=== PATIENT | female | born 1990 | race Caucasian/White ===

== ENCOUNTER → 2019-06-03 09:52 | Outpatient (BNVA) | payer MEDICAID, SELFPAY | PROVIDERS: PCP Nurse Practitioner; Visit Provider Nurse Practitioner Family | DX: R30.0 Dysuria (principal); R39.9 Unspecified symptoms and signs involving the genitourinary system | CPT/HCPCS: 81003; 87491; 87591; 87661 ==

== ENCOUNTER 2020-10-11 21:09 | Emergency (ER) | payer MEDICAID, SELFPAY ==
[2020-10-11 21:27] VITALS: BP 122/84; PULSE 114; RESP 18; TEMP 36.8; O2SAT 96; BMI 31.5
--- NOTE | 2020-10-11 21:47 | XRR_ITS ---
PROCEDURE INFORMATION: Exam: XR Left Knee Exam date and time: 10/11/2020 9:47 PM Age: 29 years old Clinical indication: Injury or trauma; Fall; Laceration; Patella or knee; Left; Foreign body involvement not specified; Additional info: Fall injury with laceration to back of knee TECHNIQUE: Imaging protocol: XR Left knee. Views: 3 views. COMPARISON: No relevant prior studies available. FINDINGS: Bones/joints: No acute bony injury or malalignment. Soft tissues: Posterior subcutaneous emphysema. XR/XR knee LT 3V* [id number] IMPRESSION: No acute bony injury or malalignment.
--- NOTE | 2020-10-11 21:48 | W.ED.TRAUMA ---
HPI - Trauma General: Chief Complaint: Trauma Stated Complaint: LLE INJURY/THROWN FROM HORSE Time Seen by Provider: 10/11/20 21:38 History of Present Illness: HPI narrative: Patient is a 29-year-old female comes to the ED with left knee injury. Patient says she was riding on horse just prior to arrival. She then got slightly thrown off balance while on the horse and she was then on the side of the horse and then fell off. She denies any head trauma or loss of consciousness. She thinks when she fell and hit the ground one of the horses hose stepped on her posterior aspect of the left knee causing an abrasion bruising and laceration. Patient was able to ambulate right after injury. One of her family members saw the back of her leg and the laceration and they brought her here to the ED to be evaluated. Associated symptoms: Denies abdominal pain, back pain, chest pain, chills, fever(s), headache(s), nausea or vomiting Review of Systems Const: Denies: fever(s), chills or fatigue Eyes: Denies: change in vision or eye discomfort ENMT: Denies: throat pain, odynophagia, nasal discharge or nasal congestion Card: Denies: chest pain, palpitations, edema, swelling of feet/ankles, dyspnea on exertion or orthopnea Resp: Denies: dyspnea, productive cough or non-productive cough GI: Denies: abdominal pain, nausea, vomiting, diarrhea, constipation or hematochezia : Denies: flank pain, dysuria or hematuria Musc: Reports: extremity pain (left knee pain); Denies: neck pain, back pain or extremity swelling Skin/Breast: Reports: new lesions (Laceration, abrasion and ecchymosis to posterior left knee); Denies: rash Neuro: Denies: headache(s), numbness in extremities or weakness in extremities PFSH ED PFSH: Family History Other No pertinent family history Social History Smoking and tobacco status: current every day smoker cigarettes Packs smoked per day: 0.5 [ Other cigarette details: smoked 10 yrs ] Second hand smoke exposure: Yes Alcohol intake: never Lives independently: Yes Household members: children Current occupational status: unemployed History of recent travel: No Current gender identity: Female Female Reproductive History: Date of last menstrual period: 09/22/20 Physical Exam Const: COMMON NORMALS: no acute distress, patient oriented x3 and alert GENERAL APPEARANCE: cooperative and comfortable HENMT: COMMON NORMALS: normocephalic HEAD & SCALP: normocephalic MOUTH: Normal oral and palatal mucosa present THROAT: posterior oropharynx normal and uvula midline Neck/C-Spine: COMMON NORMALS: supple GENERAL: Yes normal visual inspection Resp: COMMON NORMALS: normal respiratory effort, No retractions, No use of accessory muscles and clear to auscultation bilaterally AUSCULTATION: clear to auscultation bilaterally Cardio: COMMON NORMALS: regular rate, regular rhythm, S1 normal heart sound present, S2 normal heart sound present, No gallops present (Cardio), No clicks present (Cardio), No murmurs present (Cardio) and Peripheral pulses 2+ throughout RATE: regular rate RHYTHM: regular rhythm HEART SOUNDS: S1 normal heart sound present and S2 normal heart sound present PERIPHERAL PULSES: Peripheral pulses 2+ throughout GI: COMMON NORMALS: Normal to inspection, nondistended, normoactive bowel sounds present, Soft to palpation, non-tender and no masses PALPATION: Yes Soft to palpation : COMMON NORMALS: Yes no CVA tenderness BLADDER/KIDNEY EXAM: Yes no CVA tenderness Back/Pelvis: COMMON NORMALS: no CVA tenderness Extremity: NARRATIVE EXTREMITY EXAM: Left knee?posterior aspect has superficial abrasions with ecchymosis. There is approximately 1 cm laceration as well that is superficial with no active bleeding. She also has 2 superficial abrasions to anterior aspect of left lower leg. GENERAL: Yes normal exam except as noted Neuro: COMMON NORMALS: patient oriented x3 and moves all extremities SENSORIUM/ORIENTATION: Yes alert Skin: NARRATIVE SKIN EXAM: Left knee?posterior aspect has superficial abrasions with ecchymosis. There is approximately 1 cm laceration as well that is superficial with no active bleeding. She also has 2 superficial abrasions to anterior aspect of left lower leg. GENERAL SKIN EXAM: dry skin Procedures Laceration Laceration 1: Site: lower extremity (back of left knee) Side (If applicable): left Size (cm): 1.5 Description: irregular and clean Depth: simple, single layer Local Anesthetic: lidocaine 1% and with epi Amount of anesthesia used (mL): 10 Pre-repair: irrigated extensively (Irrigated extensively with normal saline and iodine wash. Skin cleaned with CHG swab.) Skin layer closed with: nylon Size (cm): 4-0 Number of sutures: 6 Technique: simple, interrupted Course Vital Signs: Vital signs: Vital Signs Temperature 98.3 F 10/11/20 21:27 Pulse Rate 91 10/12/20 00:57 Respiratory Rate 16 10/12/20 00:57 Blood Pressure 117/80 10/12/20 00:57 Pulse Oximetry 96 10/12/20 00:57 MDM - Trauma MDM Narrative: Medical decision making narrative: Patient is a 29-year-old female comes to the ED with injury to left knee. Patient fell off horse and believes she might of gotten her left knee stepped on by horse. Denies any head trauma, loss of consciousness or any other pain or injury. She now has superficial abrasion to posterior aspect of left knee, ecchymosis and a 1.5 cm irregular shaped laceration. X-ray left knee showed no acute fractures or findings. I irrigated the laceration site extensively with normal saline and iodine wash. I then cleaned the skin with CHG swab. Lidocaine 1% with epi was used as local. I then placed 6 sutures to close laceration. Nurse then applied bacitracin and bandage over wound. Patient was discharged home with crutches and a prescription for cephalexin. Patient diagnosed with laceration of left leg, contusion of left leg and abrasion of left leg. She was told to have a medical provider evaluate her laceration in 7 to 10 days to remove sutures. Return to ED precautions given. Patient understood and agree with plan. Imaging Data^: Xray Ortho: Attestation: I personally reviewed and interpreted this imaging study as follows: My impression: Left knee x-ray?no acute fracture seen. Discharge Plan Discharge Patient Disposition: Home Clinical Impression: Laceration of left leg Qualifiers: Encounter type: initial encounter Qualified Code(s): S81.812A - Laceration without foreign body, left lower leg, initial encounter Contusion of left leg Qualifiers: Encounter type: initial encounter Qualified Code(s): S80.12XA - Contusion of left lower leg, initial encounter Abrasion of left leg Qualifiers: Encounter type: initial encounter Qualified Code(s): S80.812A - Abrasion, left lower leg, initial encounter Condition: Stable Prescriptions: New cephalexin 500 mg capsule 500 mg PO Q6H 7 Days Qty: 28 RF: 0 Discharge Orders: Discharge ED (Routine); Ordered 10/11/20 Ordered By: Nicolas Mason Referrals: Jackie Badillo FNP-C [Primary Care Provider] - Discharge Diet: Regular Discharge Activity: Limit activity as instructed and Use walker/crutches as instructed Patient Instructions: Suture Care (ED), Laceration (ED), Contusion in Adults (ED), Abrasion (ED) Activity Restrictions/Additional Instructions: Take full course of antibiotics as prescribed. Use crutches and limit movement of left leg for the next 48 hours. Keep laceration site clean and dry for the next 48 hours. Then after that you can clean and re-bandage daily. Watch for signs of infection such as redness, warmth, increased tenderness and puslike drainage. If you see the signs of infection return to the ED, urgent care or PCP for reevaluation. call your PCP to schedule a follow-up appointment for reevaluation and suture removal in about 7- 10 days. Apply cold pack on left knee to help with swelling. Continue taking all home meds. Follow discharge plans as discussed. You can return to the ED if symptoms worsen. Coding Level of Care Code ED Deputy County Attorney for Rudi Dewitt Exam Comprehensive
[2020-10-12] MEDS: cephALEXin 500 mg Capsule PO (00:29)
[2020-10-12] MEDS: bacitracin ointment Pkt 1 EACH TOPICAL (00:29)
--- NOTE | 2020-10-12 00:45 | PC.NURSE ---
Cleaned and applied bacitracin to wounds to LLE. Applied bandages and curlex. Pt tolerated well.
[2020-10-12 00:57] VITALS: BP 117/80; PULSE 91; RESP 16; O2SAT 96
== END 2020-10-12 01:01 | disposition home or self-care (01) ==
PROVIDERS: Emergency Provider Physician Assistant; PCP Nurse Practitioner
DX: S81.812A Laceration without foreign body, left lower leg, initial encounter (principal); S80.12XA Contusion of left lower leg, initial encounter; S80.812A Abrasion, left lower leg, initial encounter; F17.210 Nicotine dependence, cigarettes, uncomplicated; V80.010A Animal-rider injured by fall from or being thrown from horse in noncollision accident, initial encounter
CPT/HCPCS: 12001; 73562; 99283; E0114

== ENCOUNTER → 2020-10-21 00:01 | Outpatient (BNVA) | payer MEDICAID, SELFPAY | PROVIDERS: PCP Nurse Practitioner; Visit Provider Nurse Practitioner Family | DX: R30.0 Dysuria (principal); S80.812A Abrasion, left lower leg, initial encounter; L03.116 Cellulitis of left lower limb; X58.XXXA Exposure to other specified factors, initial encounter | CPT/HCPCS: 87070; 87075; 87077; 87184; 87205 ==

== ENCOUNTER → 2021-03-17 11:15 | Outpatient (BNVA) | payer MEDICAID, SELFPAY | PROVIDERS: PCP Nurse Practitioner; Visit Provider Nurse Practitioner Family | DX: J32.9 Chronic sinusitis, unspecified (principal); M25.562 Pain in left knee | CPT/HCPCS: 73562; 87071; 87635; 87880 ==

== ENCOUNTER 2021-05-26 13:20 | Outpatient (CLI) | payer MEDICAID, SELFPAY ==
--- NOTE | 2021-05-26 13:27 | MR_ITS ---
WS: [id number] MRI LEFT KNEE NONCONTRAST TECHNIQUE: Axial PD, coronal PD fat sat, coronal PD, sagittal PD, and sagittal PD fat-sat images obta ined. CLINICAL INFORMATION: M25.562 - Pain in left knee COMPARISON: None. FINDINGS: Distal quadriceps and patella tendons are intact. Normal ACL and PCL. Patella is normal in appearance . Normal bone marrow signal. Normal medial and lateral meniscus. No acute appearing meniscal tears. Medial and lateral joint diana rtments are well preserved. No significant chondromalacia. Normal medial and lateral patellar retinac ulum. Normal popliteal fossa. Normal medial and lateral collateral ligaments. Normal tibial plateau. No other significant findings. MR/MR knee LT wo con* [id number] IMPRESSION: 1. Normal ACL and PCL. 2. Normal medial and lateral meniscus. No acute appearing meniscal tears. 3. Normal medial and lateral collateral ligaments. 4. Normal bone marrow signal. 5. No acute knee findings. Outbridge grading: grade I: focal areas of hyperintensity with normal contour
== END 2021-05-26 13:21 | disposition home or self-care (01) ==
LOC: RAD 13:21
PROVIDERS: PCP Nurse Practitioner; Visit Provider Nurse Practitioner Family
DX: M25.562 Pain in left knee (principal)
CPT/HCPCS: 73721

== ENCOUNTER 2023-09-11 20:02 | Inpatient (IN) | payer MEDICAID, SELFPAY ==
[2023-09-11 20:03] VITALS: BP 132/81; PULSE 77; RESP 18; TEMP 36.5; O2SAT 98; BMI 22.6
--- NOTE | 2023-09-11 20:17 | W.ED.PSYCHS ---
HPI - Psych General: Chief Complaint: Psychiatric Symptoms Stated Complaint: anxiety, confusion Time Seen by Provider: 09/11/23 20:03 Source: patient and EMS Mode of arrival: EMS Limitations: no limitations History of Present Illness: 32-year-old female states she been having increased depression patient denies any SI or HI but states she is just been feeling severely depressed and down and wants to be admitted to the [facility] for evaluation. She is not on any psych meds at this time. Denies any worse improving factors Associated symptoms: Reports depression Review of Systems Const: Denies: fever(s), chills, body aches or change in appetite ENMT: Denies: throat pain or dental pain Card: Denies: chest pain Resp: Denies: dyspnea GI: Denies: abdominal pain, nausea, vomiting or diarrhea Musc: Denies: neck pain or back pain Skin/Breast: Denies: rash Neuro: Denies: headache(s) Psych: Reports: depression PFS ED PFSH: Family History Other No pertinent family history Social History Smoking and tobacco/nicotine status: current every day tobacco/nicotine user cigarettes Packs smoked per day: 0.5 [ Other cigarette details: smoked 10 yrs] Second hand smoke exposure: Yes Alcohol intake: never Substance/Drug Use: never Lives independently: Yes Household members: children service: No Current occupational status: unemployed Current gender identity: Female Physical Exam Const: COMMON NORMALS: no acute distress, patient oriented x3 and healthy appearing HENMT: COMMON NORMALS: normocephalic and atraumatic HEAD & SCALP: normocephalic and atraumatic Eye: COMMON NORMALS: Equal, round and reactive pupils present PUPIL: Yes Equal, round and reactive pupils present Neck/C-Spine: COMMON NORMALS: full ROM and supple Chest: COMMONS NORMALS: normal inspection of the chest Resp: COMMON NORMALS: normal respiratory effort Cardio: COMMON NORMALS: regular rate, regular rhythm and No murmurs present (Cardio) RATE: regular rate RHYTHM: regular rhythm Extremity: COMMON NORMALS: normal to inspection and full ROM Neuro: COMMON NORMALS: patient oriented x3, moves all extremities and no focal motor deficits Psych: COMMON NORMALS: mental status grossly normal, Normal thought process present and cooperative ATTITUDE: Yes Withdrawn affect present MOOD & AFFECT: Yes depressed mood THOUGHT PROCESS: Normal thought process present THOUGHT CONTENT: No Suicidality present Skin: COMMON NORMALS: no rashes or lesions noted and no wounds GENERAL SKIN EXAM: no rashes or lesions noted Course Vital Signs: Vital signs: Vital Signs Temperature 97.7 F 09/11/23 20:03 Pulse Rate 77 09/11/23 20:03 Respiratory Rate 18 09/11/23 20:03 Blood Pressure 132/81 09/11/23 20:03 Pulse Oximetry 98 09/11/23 20:03 Oxygen Delivery Me thod Room Air 09/11/23 20:03 [facility] - Psych Medical Decision Making Patient presents here with depression she is not suicidal or homicidal but voluntarily wants to be admitted to the [facility] patient is medically cleared will admit at this time I did speak to Dr. Moncada who agrees to admission Medical Records I reviewed the patient's medical records. Lab Data I reviewed the patient's lab results. 09/11/23 20:22 09/11/23 20:[address] 09/11/23 20:18 IMPRESSION: No acute intracranial abnormality. Laboratory Results WBC 10.50 10^3/uL (3.29-11.43) 09/11/23 20:22 RBC 5.11 10^6/uL (3.85-5.65) 09/11/23 20:22 Hgb 14.20 g/dL (11.27-16.99) 09/11/23 20:22 Hct 44.2 % (36-47) 09/11/23 20:22 MCV 86.5 fl (85-98) 09/11/23 20:22 MCH 27.8 pg (27-33) 09/11/23 20:22 MCHC 32.1 g/dL (30-55) 09/11/23 20:22 RDW 14.0 % (12.1-15.1) 09/11/23 20:22 Plt Count 457 10^3/cmm (157-399) H 09/11/23 20:22 MPV 9.5 fL (7.4-10.4) 09/11/23 20:22 Neut % (Auto) 73.0 % 09/11/23 20:22 Lymph % (Auto) 19.9 % 09/11/23 20:22 Upson % (Auto) 5.3 % 09/11/23 20:22 Eos % (Auto) 1.0 % 09/11/23 20:22 Baso % (Auto) 0.5 % 09/11/23 20:22 Neut # (Auto) 7.66 10^3/uL (1.8-7.7) 09/11/23 20:22 Lymph # (Auto) 2.1 10^3/uL (0.8-4.8) 09/11/23 20:22 Upson # (Auto) 0.6 10^3/uL (0.2-0.9) 09/11/23 20:22 Eos # (Auto) 0.1 10^3/uL (0.0-0.8) 09/11/23 20:22 Baso # (Auto) 0.1 10^3/uL (0.0-0.1) 09/11/23 20:22 Nucleated RBC % (auto) 0 % 09/11/23 20: Nucleated RBCs # 0.0 /100WBC 09/11/23 20:22 Sodium 138 mmol/L (136-145) 09/11/23 20:22 Potassium 3.4 mmol/L (3.5-5.1) L 09/11/23 20:22 Chloride 103 mmol/L (98-107) 09/11/23 20:22 Carbon Dioxide 24 mmol/L (22-29) 09/11/23 20:22 Anion Gap 14.4 (5-19) 09/11/23 20:22 BUN 5 mg/dL (6-20) L 09/11/23 20:22 Creatinine 0.5 mg/dL (0.5-0.9) 09/11/23 20:22 GFR Calculation 143.9 mL/min (90-130) H 09/11/23 20:22 Glucose 97 mg/dL (65-115) 09/11/23 20:22 Calculated Osmolality 283 mOsm/kg (285-295) L 09/11/23 20:22 Calcium 8.8 mg/dL (8.5-10.5) 09/11/23 20:22 Total Bilirubin 0.5 mg/dL (0.15-1.2) 09/11/23 20:22 AST 9 U/L (0-32) 09/11/23 20:22 ALT 8 U/L (0-33) 09/11/23 20:22 Alkaline Phosphatase 72 U/L (35-105) 09/11/23 20:22 Total Protein 7.8 g/dL (6.6-8.7) 09/11/23 20:22 Albumin 4.3 g/dL (3.5-5.2) 09/11/23 20:22 Globulin 3.5 g/dL (1.3-4.6) 09/11/23 20:22 TSH 2.05 uIU/mL (0.27-4.20) 09/11/23 20:22 HCG, Qual Negative (Negative) 09/11/23 20:22 Salicylates < 0.3 mg/dL (3-10) L 09/11/23 20:22 Urine Opiates Screen Negative ng/mL (Negative) 09/11/23 20:22 Acetaminophen < 5.0 ug/mL (10-30) L 09/11/23 20:22 Ur Barbiturates Screen Negative ng/mL (Negative) 09/11/23 20:22 Ur Phencyclidine Scrn Negative ng/mL (Negative) 09/11/23 20:22 Ur Amphetamines Screen Positive ng/mL (Negative) H 09/11/23 20:22 U Benzodiazepines Scrn Negative ng/mL (Negative) 09/11/23 20:22 Urine Cocaine Screen Negative ng/mL (Negative) 09/11/23 20:22 U Marijuana (THC) Screen Positive ng/mL (Negative) H 09/11/23 20:22 Ethyl Alcohol < 10 mg/dL (0-10) 09/11/23 20:22 No radiology studies performed this visit Discharge Plan Discharge Condition: Stable Referrals: Yamileth Kraus NP [Nurse Practitioner] - Coding Level of Care Code ED Tow Motor Operator for Rudi Dewitt
--- NOTE | 2023-09-11 20:18 | CTR_ITS ---
PROCEDURE INFORMATION: Exam: CT Head Without Contrast Exam date and time: 09/11/2023 8:31 PM Age: 32 years old Clinical indication: Altered mental status/memory loss; Additional info: Confusion TECHNIQUE: Imaging protocol: Computed tomography of the head without contrast. Radiation optimization: All CT scans at this facility use at least one of these dose optimization techniques: automated exposure control; mA and/or kV adjustment per patient size (includes targeted exams where dose is matched to clinical indication); or iterative reconstruction. COMPARISON: No relevant prior studies available. RADIATION DOSE METRICS: Total DLP (mGy-cm): 1085 FINDINGS: Brain: Normal. No hemorrhage. Unremarkable white matter. No mass effect. Cerebral ventricles: No ventriculomegaly. Paranasal sinuses: Visualized sinuses are unremarkable. No fluid levels. Mastoid air cells: Visualized mastoid air cells are well aerated. Bones: Unremarkable. No acute fracture. Soft tissues: Unremarkable. CT/CT head wo con* [id number] IMPRESSION: No acute intracranial abnormality.
[2023-09-11 20:29] LABS: Basophils # 0.1 10^3/uL (0.0-0.1); Basophils % 0.5 %; Eosinophils # 0.1 10^3/uL (0.0-0.8); Hematocrit 44.2 % (36-47); Lymphocytes # 2.1 10^3/uL (0.8-4.8); Lymphocytes % 19.9 %; Mean Corpuscular HGB Conc 32.1 g/dL (30-55); Mean Corpuscular Hemoglobin 27.8 pg (27-33); Mean Corpuscular Volume 86.5 fl (85-98); Mean Platelet Volume 9.5 fL (7.4-10.4); Monocytes # 0.6 10^3/uL (0.2-0.9); Monocytes % 5.3 %; Neutrophils # 7.66 10^3/uL (1.8-7.7); Nucleated Red Blood Cells % 0 %; Platelet Count 457 10^3/cmm (157-399); Red Blood Count 5.11 10^6/uL (3.85-5.65)
[2023-09-11 20:33] LABS: HCG Qualitative Urine. Negative (Negative)
[2023-09-11 20:41] LABS: Amphetamines Screen Urine Positive (Negative); Barbiturates Screen Urine Negative (Negative); Benzodiazepines Screen Urine Negative (Negative); Cocaine Screen Urine Negative (Negative); Opiate Screen Urine Negative (Negative); PCP Screen Urine Negative (Negative); THC Screen Urine Positive (Negative)
[2023-09-11 21:06] LABS: Acetaminophen < 5.0 ug/mL (10-30); Alanine Aminotransferase 8 U/L (0-33); Albumin Level 4.3 g/dL (3.5-5.2); Alcohol Level < 10 mg/dL (0-10); Alkaline Phosphatase 72 U/L (35-105); Anion Gap 14.4 (5-19); Aspartate Amino Transferase 9 U/L (0-32); Blood Urea Nitrogen 5 mg/dL (6-20); Calcium 8.8 mg/dL (8.5-10.5); Carbon Dioxide 24 mmol/L (22-29); Chloride 103 mmol/L (98-107); Creatinine Clr Calc Pharmacy 129.8449; Globulin 3.5 g/dL (1.3-4.6); Glomerular Filtration Rate 143.9 mL/min (90-130); Glucose 97 mg/dL (65-115); Osmolality Calculated 283 mOsm/kg (285-295); Potassium 3.4 mmol/L (3.5-5.1); Salicylate < 0.3 mg/dL (3-10); Sodium 138 mmol/L (136-145); Total Bilirubin 0.5 mg/dL (0.15-1.2); Total Protein 7.8 g/dL (6.6-8.7)
[2023-09-11 21:09] LABS: Thyroid Stimulating Hormone 2.05 uIU/mL (0.27-4.20)
[2023-09-11 22:09] VITALS: BP 120/79; PULSE 78; RESP 16; TEMP 36.6; O2SAT 98
[2023-09-12 06:00] VITALS: BP 111/73; PULSE 91; RESP 18; TEMP 36.7; O2SAT 98
--- NOTE | 2023-09-12 08:35 | PC.NURSE ---
Patient resting in bed this morning with eyes widened. When asked assessment questions this morning she either didn't respond or responded inappropriately. When asking patient if she felt anxious she paused for several seconds and then said, anxious, then laughed. However, she was alert and oriented x 4.
[2023-09-12 14:00] VITALS: BP 110/77; PULSE 73; RESP 20; TEMP 37; O2SAT 100
--- NOTE | 2023-09-12 16:55 | P.NPUHP_ITS ---
Providers/Chief Complaint 2 Admitting Physician: Gerald Moncada MD Primary Care Provider: Ariadna Stewart APN Chief Complaint: anxiety, confusion HPI NPU History of Present Illness Yamileth Cordova is a 32 year old female with no previous reported history of inpatient psychiatric hospitalization who presented to the emergency department via EMS. She was an extremely poor historian and unable to provide any clear information as to why she was admitted to the psychiatric unit for further evaluation and treatment. Patient had nodded her head acknowledging that she had been depressed and acknowledged having worsening mood. The patient had a positive drug screen for amphetamines but repeatedly stated that she was not using any illicit drugs. She appeared in great distress and was unable to provide any clear history through open-ended questions. The patient had acknowledged having 2 children in the home and had stated that her of 1 month was caring for them currently. She had minimized having problems with hallucinations. She had minimized any symptoms suggestive of sarah beth. She had reported having some difficulties with falling asleep. Inpatient psychiatric hospitalization: None reported outpatient psychiatric history: None reported drug and alcohol history: Denied any illicit drug use despite a positive test for marijuana and amphetamines on initial screening here. Medical history: Per previous records history of cellulitis and dysuria along with left knee pain Surgical history: None reported Allergies: No known drug allergies Legal history: Unknown Current medications: None Social history: The patient lives in [facility] with her of 1 month. She has 2 children ages 11 and 9 from a previous relationship. This is her first marriage. She had reported that she had received special education services as a child. She reports that her mother had raised her in [place] and her father was not involved in her life after the age of 6. She had dropped out of school in the 11th grade and states that she is currently on disability. She had not endorsed any history of sexual physical or emotional abuse. Meds NPU Home Medications Medication Instructions Recorded Confirmed Last Taken Type No Known Home Medications 09/11/23 09/11/23 Unknown History Allergies Allergy/AdvReac Type Severity Reaction Status Date / Time No Known Allergies Allergy Verified 09/19/22 16:19 PFSH NPU 2 PFSH: Family History Other No pertinent family history Social History Smoking and tobacco/nicotine status: current every day tobacco/nicotine user cigarettes Packs smoked per day: 0.5 [ Other cigarette details: smoked 10 yrs] Second hand smoke exposure: Yes Alcohol intake: never Substance/Drug Use: never Lives independently: Yes Household members: children service: No Current occupational status: unemployed Current gender identity: Female Mental Status Exam 2 MSE Comments: The patient was lying in bed and minimally interactive with fleeting eye contact. She had excessive blinking noted and very limited speech appreciated. There was decreased productivity and speech and decreased in volume. There was significant paucity of speech and increased speech latency. There was a significant delay in her responses and she was extremely guarded. She described her mood as okay. Her affect was odd and subdued. Her thought process was superficial but linear. She denied any thoughts of hurting herself or others. There was no evidence of delusional thinking. She did appear at times to be responding to internal stimuli but denied any complaints of this. Her intelligence appeared commensurate with mild cognitive impairment. Her attention span appeared poor she was distracted. Her insight is impaired. Her judgment is poor. Her impulse control appeared limited at best. There was no evidence of any abnormal involuntary motor movements or tics appreciated. Vitals/I&O/Wt Last Vital Signs Temp 98.6 F 09/12/23 14:00 Pulse 73 09/12/23 14:00 Resp 20 H 09/12/23 14:00 BP 110/77 09/12/23 14:00 Pulse Ox 100 09/12/23 14:00 O2 Del Method Room Air 09/12/23 06:00 Weight last 48 hrs Weight 54.431 kg Data NPU 09/11/23 20:22 09/11/23 20:22 A&P Assessment and plan (1) Unspecified psychosis: (2) Methamphetamine abuse: (3) Depression, unspecified: Plan 32-year-old female admitted while testing positive for amphetamines who is unable to provide any clear information regarding her hospitalization but appears to be under the influence of some illicit substance and psychotic. CT exam of the head appeared normal. She will continue to require acute inpatient hospitalization. #1.? Engage patient in individual milieu and group therapy. #2?? Recommend sober living treatment at the highest level of care to which the patient is willing to commit #3?? TO-15 minute checks? #4?? Will attempt to gather collateral information At Involuntary Hold Information 2 96 Hour Hold: 96 Hour Involuntary Admission: No Attestations NPU 2 Medical Necessity Statement*: Inpatient hospitalization is medically necessary and deemed to ?be ?the clinically appropriate intervention ?at this time.? We will monitor/initiate medications and make changes as indicated.? The patient will be in the hospital for over 2 midnights.? The patient?s likely length of stay 5-7 days. Coding Level of Care Code Acute Code for Chg Fwd Diagnoses Unspecified psychosis F29 Methamphetamine abuse F15.10 Depression, unspecified F32.A
[2023-09-12] MEDS: paliperidone ER 3 mg Tablet PO (20:31)
[2023-09-12 22:00] VITALS: BP 110/70; PULSE 74; RESP 16; TEMP 36.6; O2SAT 98
[2023-09-13 06:00] VITALS: BP 88/62; PULSE 97; RESP 16; O2SAT 98
--- NOTE | 2023-09-13 09:13 | PC.NURSE ---
PT RESTING IN BED. AROUSES TO VOICE. PT IS EVASIVE WITH ASSESSMENT AND LOOKS AT RN IF SHE IS CONFUSED AND DIORIENTATED. PT IS OBSERVED TO HAVE CONFUSION AND DELAYED IN SPEECH AND DIFFICULTY FINDING WORDS. DENIES PAIN. DENIES SI/HI AND AVH AT THIS TIME. DENIES PAIN. PT CONTINUES TO BE WITHDRAWN TO ROOM. RATES ANXIETY 5/10 AND DEPRESSION 0/10. PT STATES GOAL FOR THE DAY IS NOTHING, I DON'T WANT A GOAL. ALL QUESTIONS ANSWERED AND SUPPORT WAS VOICED.
[2023-09-13 14:00] VITALS: BP 120/80; PULSE 100; RESP 20; TEMP 36.6; O2SAT 99
--- NOTE | 2023-09-13 17:23 | P.NPUPN_ITS ---
Subjective NPU 2 Subjective: 32-year-old female admitted with unspecified psychosis positive with active methamphetamine use. Patient had minimized having any use of amphetamines that she knew about. She had isolated herself in the on the milieu but appeared less sedated. She was cooperative and there was no evidence of aggression. She did not endorse having any problems. She had limited engagement with staff. she had limited ability to communicate and continue to show evidence of significant delay in her thinking process with patient often not answering questions. Mental Status Exam 2 MSE Comments: The patient was sitting on bed and minimally interactive with improved eye contact with odd intense stare noted. She had no excessive blinking noted. There was decreased productivity in speech and decreased in volume with an extended period of latency of severl seconds There was significant paucity of speech and increased speech latency. There was a significant delay in her responses and she was extremely guarded. She described her mood as okay. Her affect was odd and subdued. Her thought process was superficial but linear. She denied any thoughts of hurting herself or others. There was no evidence of delusional thinking. She did appear at times to be responding to internal stimuli but denied any complaints of this. Her intelligence appeared commensurate with mild cognitive impairment. Her attention span appeared poor as she remained distracted. Her insight is impaired. Her judgment is poor. Her impulse control appeared limited at best. There was no evidence of any abnormal involuntary motor movements or tics appreciated. Vitals/I&O/Wt Last Vital Signs Temp 97.9 F 09/13/23 14:00 Pulse 100 09/13/23 14:00 Resp 20 H 09/13/23 14:00 BP 120/80 09/13/23 14:00 Pulse Ox 99 09/13/23 14:00 O2 Del Method Room Air 09/13/23 14:00 Weight last 48 hrs Weight 54.431 kg Data NPU 09/11/23 20:22 09/11/23 20:22 A&P Assessment and plan (1) Unspecified psychosis: (2) Methamphetamine abuse: (3) Depression, unspecified: Plan 32-year-old female admitted while testing positive for amphetamines who is unable to provide any clear information regarding her hospitalization but appears to be under the influence of some illicit substance and psychotic. CT exam of the head appeared normal. She will continue to require acute inpatient hospitalization. #1.? Engage patient in individual milieu and group therapy. #2?? Recommend sober living treatment at the highest level of care to which the patient is willing to commit #3?? TO-15 minute checks? #4?? Will attempt to gather collateral information #5 Invega 3mg at night. Involuntary Hold Information 2 96 Hour Hold: 96 Hour Involuntary Admission: No Attestations NPU 2 Medical Necessity Statement*: Inpatient hospitalization is medically necessary and deemed to ?be ?the clinically appropriate intervention ?at this time.? We will monitor/initiate medications and make changes as indicated.?? The patient?s likely length of stay 5-7 days. Coding Level of Care Code Acute Code for Chg Fwd Diagnoses Unspecified psychosis F29 Methamphetamine abuse F15.10 Depression, unspecified F32.A
[2023-09-13 20:00] VITALS: BP 119/84; PULSE 90; RESP 18; TEMP 36.8; O2SAT 97
[2023-09-13] MEDS: paliperidone ER 3 mg Tablet PO (21:07)
[2023-09-13] MEDS: hyDROXYzine 25 mg Capsule 50 MG PO (21:08)
[2023-09-13] MEDS: trazodone 50 mg Tablet PO (21:08)
[2023-09-14 06:00] VITALS: BP 100/67; PULSE 67; RESP 18; TEMP 36.4; O2SAT 99
[2023-09-14 14:00] VITALS: BP 105/70; PULSE 84; RESP 17; TEMP 36.6; O2SAT 98
--- NOTE | 2023-09-14 15:10 | P.NPUDS_ITS ---
Diagnoses at Discharge Discharge Diagnosis (1) Unspecified psychosis: Status: Acute (2) Methamphetamine abuse: Status: Acute (3) Depression, unspecified: Status: Acute Reason for Visit Reason for Visit: anxiety, confusion Brief History: History of Present Illness Yamileth Cordova is a 32 year old female with no previous reported history of inpatient psychiatric hospitalization who presented to the emergency department via EMS. She was an extremely poor historian and unable to provide any clear information as to why she was admitted to the psychiatric unit for further evaluation and treatment. Patient had nodded her head acknowledging that she had been depressed and acknowledged having worsening mood. The patient had a positive drug screen for amphetamines but repeatedly stated that she was not using any illicit drugs. She appeared in great distress and was unable to provide any clear history through open-ended questions. The patient had acknowledged having 2 children in the home and had stated that her of 1 month was caring for them currently. She had minimized having problems with hallucinations. She had minimized any symptoms suggestive of sarah beth. She had reported having some difficulties with falling asleep. Inpatient psychiatric hospitalization: None reported outpatient psychiatric history: None reported drug and alcohol history: Denied any illicit drug use despite a positive test for marijuana and amphetamines on initial screening here. Medical history: Per previous records history of cellulitis and dysuria along with left knee pain Surgical history: None reported Allergies: No known drug allergies Legal history: Unknown Current medications: None Social history: The patient lives in [facility] with her of 1 month. She has 2 children ages 11 and 9 from a previous relationship. This is her first marriage. She had reported that she had received special education services as a child. She reports that her mother had raised her in [place] and her father was not involved in her life after the age of 6. She had dropped out of school in the 11th grade and states that she is currently on disability. She had not endorsed any history of sexual physical or emotional abuse. Hospital Course Hospital Course During the hospitalization, the patient had routine laboratory studies which were within normal limits except for a few outliers.? The patient had presented initially extremely confused as her urine screen was positive for amphetamines and she was appearing psychotic while being unable to answer questions and appearing to be responding to internal stimuli. Patient was started on Invega 3 mg orally and improved rapidly as her speech became more normal with less speech delay and she was more interactive being able to answer questions appropriately and communicate with others. She was agreeable to continuing this medication on an outpatient basis. Additionally, there was a general medical evaluation which was also within normal limits and revealed no new acute processes. ?At the time of discharge, lethality was denied and psychosis was resolving.? Mood and anxiety were well managed.? The patient endorsed a plan to avoid all drugs of abuse and follow up with the aftercare recommendations of the treatment team.? The patient was evaluated and deemed to be absent credible lethality and had achieved the maximum benefit from an inpatient hospitalization, and so was discharged. Involuntary Hold Information 96 Hour Hold: 96 Hour Involuntary Admission: No Mental Status Exam MSE Comments: The patient was pleasant and cooperative on discharge. No abnormal involuntary motor movements appreciated. Her gait was adequate. Her hygiene appeared improved. There was no evidence of any abnormal involuntary motor movements or tics. Her speech was normal in regards to volume and rate today. Her mood was described as better. Her affect was brighter on discharge. Her thought process was linear logical and goal-directed. Her thought content showed no evidence of homicidal or suicidal ideation. She did not appear to be responding internal stimuli. There is no evidence of delusional thinking. Her attention span appeared improved. She was alert and oriented to person place time and situation. Her insight was improved. Her judgment appeared improved. Her impulse control appeared adequate on discharge. Discharge Data Studies Completed and Pending: Completed Studies During Hospitalization Category Date Time Status CT head wo con* [id number] Stat Cat Scan 09/11/23 20:18 Completed Radiology Impressions Head CT 09/11/23 20:18 IMPRESSION: No acute intracranial abnormality. Laboratory Results WBC 10.50 10^3/uL (3. 29-11.43) 09/11/23 20:22 RBC 5.11 10^6/uL (3.8 5-5.65) 09/11/23 20:22 Hgb 14.20 g/dL (11.27 -16.99) 09/11/23 20:22 Hct 44.2 % (36-47) 09/11/23 20:22 MCV 86.5 fl (85-98) 09/11/23 20:22 MCH 27.8 pg (27-33) 09/11/23 20: MCHC 32.1 g/dL (30-55) 09/11/23 20:22 RDW 14.0 % (12.1-15.1 ) 09/11/23 20:22 Plt Count 457 10^3/cmm (157 -399) H 09/11/23 20:22 MPV 9.5 fL (7.4-10.4) 09/11/23 20:22 Neut % (Auto) 73.0 % 09/11/23 20:22 Lymph % (Auto) 19.9 % 09/11/23 20:22 Carter % (Auto) 5.3 % 09/11/23 20:22 Eos % (Auto) 1.0 % 09/11/23 20:22 Baso % (Auto) 0.5 % 09/11/23 20:22 Neut # (Auto) 7.66 10^3/uL (1.8 -7.7) 09/11/23 20:22 Lymph # (Auto) 2.1 10^3/uL (0.8- 4.8) 09/11/23 20:22 Carter # (Auto) 0.6 10^3/uL (0.2- 0.9) 09/11/23 20:22 Eos # (Auto) 0.1 10^3/uL (0.0- 0.8) 09/11/23 20:22 Baso # (Auto) 0.1 10^3/uL (0.0- 0.1) 09/11/23 20:22 Nucleated RBC % (a uto) 0 % 09/11/23 20: Nucleated RBCs # 0.0 /100WBC 09/11/23 20:22 Sodium 138 mmol/L (136-1 45) 09/11/23 20:22 Potassium 3.4 mmol/L (3.5-5 .1) L 09/11/23 20:22 Chloride 103 mmol/L (98-10 7) 09/11/23 20:22 Carbon Dioxide 24 mmol/L (22-29) 09/11/23 20:22 Anion Gap 14.4 (5-19) 09/11/23 20:22 BUN 5 mg/dL (6-20) L 09/11/23 20:22 Creatinine 0.5 mg/dL (0.5-0. 9) 09/11/23 20:22 GFR Calculation 143.9 mL/min (90- 130) H 06/04/24 20:22 Glucose 97 mg/dL (65-115) 09/11/23 20:22 Calculated Osmolal ity 283 mOsm/kg (285- 295) L 09/11/23 20:22 Calcium 8.8 mg/dL (8.5-10 .5) 09/11/23 20:22 Total Bilirubin 0.5 mg/dL (0.15-1 .2) 09/11/23 20:22 AST 9 U/L (0-32) 09/11/23 20:22 ALT 8 U/L (0-33) 09/11/23 20:22 Alkaline Phosphata se 72 U/L (35-105) 09/11/23 20:22 Total Protein 7.8 g/dL (6.6-8.7 ) 09/11/23 20:22 Albumin 4.3 g/dL (3.5-5.2 ) 09/11/23 20:22 Globulin 3.5 g/dL (1.3-4.6 ) 09/11/23 20:22 TSH 2.05 uIU/mL (0.27 -4.20) 09/11/23 20:22 HCG, Qual Negative (Negati ve) 09/11/23 20:22 Salicylates < 0.3 mg/dL (3-10 ) L 09/11/23 20:22 Urine Opiates Scre en Negative ng/mL (N egative) 09/11/23 20:22 Acetaminophen < 5.0 ug/mL (10-3 0) L 09/11/23 20:22 Ur Barbiturates Sc reen Negative ng/mL (N egative) 09/11/23 20:22 Ur Phencyclidine S crn Negative ng/mL (N egative) 09/11/23 20:22 Ur Amphetamines Sc reen Positive ng/mL (N egative) H 09/11/23 20:22 U Benzodiazepines Scrn Negative ng/mL (N egative) 09/11/23 20:22 Urine Cocaine Scre en Negative ng/mL (N egative) 09/11/23 20:22 U Marijuana (THC) Screen Positive ng/mL (N egative) H 09/11/23 20:22 Ethyl Alcohol < 10 mg/dL (0-10) 09/11/23 20:22 Vitals: Last Vital Signs Temp 97.8 F 09/14/23 14:00 Pulse 84 09/14/23 14:00 Resp 17 09/14/23 14:00 BP 105/70 09/14/23 14:00 Pulse Ox 98 09/14/23 14:00 O2 Del Method Room Air 09/14/23 06:00 Discharge Plan Discharge Patient Disposition: Home Condition: Stable Prescriptions: New paliperidone 3 mg Tablet Extended Release 24hr 3 mg PO BEDTIME 30 Days Qty: 30 1RF Discharge Orders: Discharge Order (Routine); Ordered 09/14/23 Ordered By: Iam Delarosa Referrals: [facility] [Other] - 09/17/23 1:00 pm Yamileth Kraus NP [Nurse Practitioner] - 09/18/23 8:40 am (Hospital follow up. ) Discharge Diet: Usual diet Discharge Activity: Resume usual activity Patient Instructions: Paliperidone (By mouth) (Invega), Methamphetamine Abuse, Depression (DC), Help Prevent Suicide (DC), Opioid Safety Discharge Attestations NPU Time Spent in Discharge Care*: less than 30 min Specific Discharge Activities: Specific discharge activities: educating patient, discussing with rn case manager hospice/social workers/dc planners and documenting/other paperwork Coding Level of Care Code Acute Code for Chg Fwd Diagnoses Unspecified psychosis F29 Methamphetamine abuse F15.10 Depression, unspecified F32.A
[2023-09-14 15:48] VITALS: BP 105/70; PULSE 84; RESP 17; TEMP 36.6; O2SAT 98
--- NOTE | 2023-09-14 16:47 | PC.NURSE ---
DISCHARGE EDUCATION COMPLETED WITH PT. PT JUST SMILED AND NODDED, GIVING NO INSIGHT TO WHAT THIS RN WAS SAYING. WHEN ARRIVED RN GAVE DISCHARGE INSTRUCTION TO HIM WITH PTS APTS. ALL QUESTIONS ANSWERED AND SUPPORT VOICED.
== END 2023-09-14 16:51 | disposition home or self-care (01) | DRG 885 ==
LOC: ER 20:22 → NP 21:35
PROVIDERS: Admitting Provider Psychiatry & Neurology Psychiatry; Emergency Provider Emergency Medicine; PCP Nurse Practitioner Family; Visit Provider Psychiatry & Neurology Psychiatry
DX: F29 Unspecified psychosis not due to a substance or known physiological condition (principal); F15.10 Other stimulant abuse, uncomplicated; R82.5 Elevated urine levels of drugs, medicaments and biological substances; F32.A Depression, unspecified
CPT/HCPCS: 70450; 80053; 80306; 80307; 81025; 84443; 85025; 97150; 97165; 99285

== ENCOUNTER → 2023-10-18 14:14 | Outpatient (BNVA) | payer MEDICAID, SELFPAY | PROVIDERS: PCP Nurse Practitioner Family; Visit Provider Nurse Practitioner Family | DX: N39.0 Urinary tract infection, site not specified (principal); F33.41 Major depressive disorder, recurrent, in partial remission; R31.9 Hematuria, unspecified; Z11.3 Encounter for screening for infections with a predominantly sexual mode of transmission | CPT/HCPCS: 87491; 87591 ==

== ENCOUNTER → 2024-07-30 14:40 | Outpatient (BNVA) | payer MEDICAID, SELFPAY | PROVIDERS: Visit Provider Nurse Practitioner Family | DX: R10.9 Unspecified abdominal pain (principal); G89.29 Other chronic pain; N39.0 Urinary tract infection, site not specified | CPT/HCPCS: 80053; 81000; 81025; 85025; 87086 ==

== ENCOUNTER → 2024-08-08 11:27 | Outpatient (BNVA) | payer MEDICAID, SELFPAY | PROVIDERS: PCP Nurse Practitioner Family; Visit Provider Nurse Practitioner Family | DX: R79.89 Other specified abnormal findings of blood chemistry (principal) | CPT/HCPCS: 85025 ==

== ENCOUNTER → 2024-08-15 10:54 | Outpatient (BNVA) | payer MEDICAID, SELFPAY | PROVIDERS: PCP Nurse Practitioner Family; Visit Provider Nurse Practitioner Family | DX: J02.9 Acute pharyngitis, unspecified (principal) | CPT/HCPCS: 87071; 87880 ==

== ENCOUNTER 2024-08-28 08:45 | Outpatient (CLI) | payer MEDICAID, SELFPAY ==
--- NOTE | 2024-08-28 08:00 | US_ITS ---
WS: [id number] Complete ABDOMINAL ULTRASOUND HISTORY: R10.9 - Unspecified abdominal pain COMPARISON: None available. Liver: 14.6 cm in length. Normal size liver and echogenicity. No bile duct dilatation or mass. Portal Vein: Normal hepatopetal flow with monophasic waveform. Gallbladder: Normally distended gallbladder with no stones or wall thickening. CBD: 0.3 cm Pancreas: Normal size and echogenicity. Right kidney: 10.7 cm x 4.9 x 4.4 cm. Cortex:1.0 cm. Normal size and echogenicity. No hydronephrosis or mass. Left kidney: 10.7 cm x 5.5 cm x 5.5 cm. Cortex: 1.0 cm. Normal size and echogenicity. No hydronephrosis or mass. Spleen: 9.1 cm. Normal size and echogenicity. Aorta and IVC: Unremarkable abdominal aorta and IVC. US/US abdomen complete* [id number] Impression: Normal complete abdomen ultrasound.
== END 2024-08-28 08:46 | disposition home or self-care (01) ==
PROVIDERS: PCP Nurse Practitioner Family; Visit Provider Nurse Practitioner Family
DX: R10.9 Unspecified abdominal pain (principal); G89.29 Other chronic pain
CPT/HCPCS: 76700

== ENCOUNTER → 2024-09-02 13:49 | Outpatient (BNVA) | payer MEDICAID, SELFPAY | PROVIDERS: PCP Nurse Practitioner Family; Visit Provider Nurse Practitioner Family | DX: N93.9 Abnormal uterine and vaginal bleeding, unspecified (principal); G89.29 Other chronic pain; R10.9 Unspecified abdominal pain | CPT/HCPCS: 80053; 81003; 85025 ==

== ENCOUNTER → 2024-12-23 17:09 | Outpatient (BNVA) | payer MEDICAID, SELFPAY | PROVIDERS: PCP Nurse Practitioner Family; Visit Provider Emergency Medicine | DX: R30.0 Dysuria (principal) | CPT/HCPCS: 81000; 87086 ==